=== PATIENT | female | born 1990 | race Caucasian/White ===

== ENCOUNTER 2017-11-10 09:07 | Inpatient (IN) ==
--- NOTE | 2017-11-10 09:27 | OB/GYN History & Physical ---
Date of Encounter: 11/10/17 Time of Encounter: 08:00 Assessment and Plan (1) Post term over 40 weeks Current visit: Yes Status: Acute (2) Elective induction of labor planned Current visit: Yes Status: Acute History of Present Illness Chief complaint: 40 week induction HPI: Ms. Rehman is a 26 year old female 1 who presents for induction of labor at 40 weeks and 3 days. She has a due date of November 07. She is doing well. She is having no complaints of any kind today. She denies any complaints. She is cathryn irregularly. Cervical exam on presentation is 1 cm, 50% effaced and -2 station with infant in vertex presentation. She has allergies to penicillin and latex. She is currently on vitamins. Surgical history is negative. Current medical conditions include asthma. She has no history of abnormal Pap smears, STDs or pelvic infections. She has no history of abnormal breast findings. Socially she denies tobacco or illicit drug use. Family history significant for heart disease, hypertension and diabetes. She is currently in the and works as a glass fitter. Obstetrical History - Pregnancies : 1 Exam - Constitutional Constitutional: well developed, well nourished, no acute distress, average body habitus - HEENT HEENT: PERRL - Neck Neck exam: full ROM - Lungs Respiratory exam: CTAB - Cardiovascular Cardiovascular exam: RRR - Abdomen Abdomen: Present: gravid, non tender - Extremities Extremities exam: full ROM - Vagina Vagina: Present: normal moisture - Cervix Dilation: 1 Effacement: 60 Station: -2 - Uterus Uterus exam: Present: normal size Results All other labs normal.
[2017-11-10] MEDS ORDERED: Famotidine 20 MG/2 ML VIAL IVP PRN (10:43)
[2017-11-10] MEDS ORDERED: *HR* Nalbuphine 10 MG/ML AMPUL IVP PRN (10:43)
[2017-11-10] MEDS ORDERED: Metoclopramide 10 MG/2 ML VIAL IVP PRN (10:43)
[2017-11-10] MEDS ORDERED: miSOPROStol 100 MCG TABLET PO STA (10:59)
--- NOTE | 2017-11-10 11:02 | OB Labor Progress Note ---
Date of Encounter: 11/10/17 Time of Encounter: 10:59 Labor Progress Note - Subjective Subjective: Patient here for scheduled IOL. We discussed POC and ruiz induction. Patient denies any questions or concerns. - Cervix Cervix: 1/70/-2 - Heart Tones Heart Tones: 125 bpm moderate variability +15x15 accels no decels Cat 1 tracing. - [place]: Contraction are irregular - Interventions Interventions: SVE, Ruiz catheter placed for IOL without difficulty. Patient tolerated well. 60cc sterile water placed in ruiz balloon per Dr. Yuen's request. - Plan Plan: Cytotec 50mcg PO Continue labor management
--- NOTE | 2017-11-10 11:14 | Anesthesia Evaluation PreOp ---
Date of Encounter: 11/10/17 Time of Encounter: 11:13 - Past History Planned Operation: caroline Cardiac History: Denies any Significant Hx Pulmonary History: Former smoker, Asthma LADIES ATTENDANT History: Denies Any Significant HX Other Medical History: Denies Any Significant HX Anesthesia History: No Prior Anesthetic Complications, Past Anesthesia (no prior anesthetics, but no family history of anesthetics) : Yes ( 40 plus) Test: Positive Alcohol Use: none Drug use: none Medications and Allergies Vit/Iron Fumarate/FA [ Tablet] 1 each PO 11/10/17 [History] 3 Allergy/AdvReac Type Severity Reaction Status Date / Time penicillamine Allergy Rash Verified 11/10/17 10:03 latex AdvReac Rash Verified 11/10/17 10:03 - Meds/Allergy Pre-op Review Medications Reviewed: Yes Allergies Reviewed: Yes Anesthesia Exam O2 Sat Height 1.6 m Height 1.6 m Weight 97.976 kg Weight 97.976 kg Height: 63 Weight: 97 - HEENT Pupil (Motor): Pupils equal Mallampati: II Teeth: Normal Oral Opening: Greater than 3 - LADIES ATTENDANT LOC: Oriented LADIES ATTENDANT Motor: Normal RUE, Normal LUE, Normal RLE, Normal LLE, Normal Face LADIES ATTENDANT Sensory: Normal: RUE, LUE, RLE, LLE, Face - Cardiac Rhythm: Regular Murmur: None JVD: No Carotid Bruit: No - Pulmonary Breath Sounds: bilateral Clear Respiratory Effort: Symmetrical Anesthesia Assess/Plan ASA Score: 2 Modified [place] Scale for Level of Consciousness: Cooperative, oriented, and tranquil Anesthetic Plan: Regional Monitoring Plan: Standard Monitors
[2017-11-10 11:44] LABS: Basophils % 0.3 %; Eosinophils % 0.4 %; Hematocrit 38.1 % (35.3-44.9); Hemoglobin 12.7 g/dL (11.5-15.4); Immature Granulocytes % 0.7 % (0-4); Lymphocytes # 1.8 K/mcL (0.6-4.6); Lymphocytes % 17.8 %; Mean Corpuscular HGB Conc 33.3 g/dL (31.6-35.5); Mean Corpuscular Hemoglobin 28.7 pg (28.0-33.3); Mean Platelet Volume 10.7 fL (9.4-12.4); Monocytes # 0.6 K/mcL (0.0-1.3); Monocytes % 6.3 %; Neutrophils # 7.6 K/mcL (1.6-8.9); Platelet Count 237 K/mcL (140-400); Red Blood Count 4.43 M/mcL (3.82-4.97); Red Cell Distribution Width 13.9 % (11.5-14.5); Segmented Neutrophils % 74.5 %
[2017-11-10 12:14] LABS: Amphetamine Screen,Urine Negative ng/mL (Cutoff=1000); Barbiturate Screen,Urine Negative ng/mL (Cutoff=200); Benzodiazepines Screen,Urine Negative ng/mL (Cutoff=200); Cannabinoid Screen,Urine Negative ng/mL (Cutoff = 50); Cocaine Screen,Urine Negative ng/mL (Cutoff= 300); Opiate Screen,Urine Negative ng/mL (Cutoff=300); Phencyclidine Screen,Urine Negative ng/mL (Cutoff=25)
--- NOTE | 2017-11-10 14:15 | OB/GYN Progress Note ---
Date of Encounter: 11/10/17 Time of Encounter: 14:13 - Assessment and Plan (1) Post term over 40 weeks Current Visit: Yes Status: Acute (2) Elective induction of labor planned Current Visit: Yes Status: Acute Subjective - Subjective Principal diagnosis: interval note labor Interval history: 26 yo female G1 at 40.3 weeks for induction of labor. ruiz induction started with misoprostol. Minimal change at 1400. Ruiz taped to leg. Will change to pitocin. category 1 tracing, irreg ctxs. Antepartum ROS: movement normal Objective - Vital Signs Vital Signs: Intake and Output 11/09/17 11/10/17 11/10/17 23:59 07:59 15:59 Other: Weight 97.976 kg Patient Weight 11/10/17 23:59 Weight 97.976 kg - Exam FHR: auscultation normal Abdomen: Present: normal appearance, gravid Uterus: Present: normal, firm Cervical dilation: 3cm Cervix effacement: 70% station: -3
--- NOTE | 2017-11-10 14:19 | History & Physical Report ---
Date of Encounter: 11/10/17 Time of Encounter: 14:17 24 Hour HP Update - Instructions Instructions: If the History and Physical is less than 30 days old and was completed prior to A.M. admission and or procedure and has NOT been updated on calendar day of procedure please complete this update prior to performing procedure. - Update Patient reports changes in Medical Condition: No Changes in examination, assessment, or condition: No Changes in Medication: No Preop tests/diagnostics Reviewed: Yes Consent for Planned Operative Procedure(s) Verified: Yes - Pre-Operative Checklist Is VTE Prophylaxis Indicated?: NO - Attending Attestation Pt seen in office last night at 16:30 in office.. H&P typed this am from last nights visit.
[2017-11-10] MEDS ORDERED: *HR* Ropivacaine/PF 0.2% 20 ML VIAL ONE (15:07)
[2017-11-10] MEDS ORDERED: Water for inj. (sterile) 10 ML IV ONE (15:07)
[2017-11-10] MEDS ORDERED: *HR* FentaNYL (PF) 100 MCG/2 ML VIAL ONE (15:07)
[2017-11-10] MEDS: Ringers Solution, Lactated 1,000 ML IVC SCH ×2 (15:09→23:53)
[2017-11-10] MEDS ORDERED: *HR* Ropivacaine/PF 0.2% 20 ML VIAL EP ONE (15:49)
[2017-11-10] MEDS ORDERED: *HR* FentaNYL (PF) 100 MCG/2 ML VIAL EP ONE (15:49)
[2017-11-10] MEDS ORDERED: EPHEDrine 50 MG/ML VIAL IVP PRN (15:49)
[2017-11-10] MEDS ORDERED: Epidural Premix (fent/bupiv) 110 ML EP SCH (16:00)
[2017-11-10] MEDS ORDERED: Oxytocin 20 units/ LR 1000 mL 20 UNIT/1,000 ML BAG IVC SCH (16:15)
--- NOTE | 2017-11-10 19:13 | OB Labor Progress Note ---
Date of Encounter: 11/10/17 Time of Encounter: 19:11 Labor Progress Note - Subjective Subjective: Patient doing well. Patient reports feeling contractions more than earlier. Blanco balloon was expelled with last check per RN. - Cervix Cervix: 6/90/-2 - Heart Tones Heart Tones: 125 bpm moderate variability +15x15 accels no decels noted. Cat. 1 tracing - [place]: 1-3 min apart - Interventions Interventions: SVE Dr. Yuen updated on patient's exam, Pitocin dosage and POC. No new orders given at this time. - Plan Plan: Continue labor management Epidural placement when desires anticipate
--- NOTE | 2017-11-10 20:10 | Anesthesia Procedures ---
Date of Encounter: 11/10/17 Time of Encounter: 20:06 Procedures: Anesthesia - Epidural/Spinal Patient ID/Chart reviewed: Yes Patient examined: Yes OB Eval: Gestational age: 40 OB Eval: : 1 OB Eval: Hx Para: 0 OB Eval: Dilated at (cm): 4 OB Eval: Contractions: Non-stressed pattern Consent Obtained: Yes Supplemental Oxygen: None/Room Air Site Prep: Aseptic Technique, 0.5% Chlorhexidine/Alcohol Patient position: upright Local Anesthetic: Lidocaine 1% Amount of Local Anesthetic used: 3 Touhy Needle Gauge: 18 Touhy Needle Depth (cm): 6 Catheter Depth at Skin (cm): 12 Test Dose (1.5% Lido + Epi): Volume given (mls): 3 Test Dose Result: Negative Loading Dose: Fentanyl (mcg): 100 Loading Dose: Other: 0.2% ropi 6cc Loading Dose Administered: Thru Touhy Needle Infusion Med: 0.125% Bupivacaine w/ 2 mcg/ml Fentanyl Infusion Rate (mls/hr): [address]: Tegaderm Interspace Used: L3-L4 Loss of Resistance (FADUMO): Yes Blood: No CSF: No Paresthesia: No Procedure: L3-4 aseptically after 4 passes. FADUMO acheived after redirected slightly left of midline. No parasthesia, no heme, no CSF
--- NOTE | 2017-11-10 20:23 | OB Labor Progress Note ---
Date of Encounter: 11/10/17 Time of Encounter: 20:12 Labor Progress Note - Subjective Subjective: Patient resting in bed post epidural placement. Discussed POC with patient. Patient denies any questions or concerns. - Cervix Cervix: 6/90/-1 - Heart Tones Heart Tones: 125 bpm moderate variability 15x15 accels no decels noted. Cat. 1 tracing - [place]: 1.5-2 - Interventions Interventions: SVE, AROM moderate amount clear fluid. IUPC placed without difficulty. Patient tolerated well. - Plan Plan: continue labor management anticipate
--- NOTE | 2017-11-11 07:16 | OB/GYN Progress Note ---
Date of Encounter: 11/11/17 Time of Encounter: 07:14 - Assessment and Plan (1) Post term over 40 weeks Current Visit: Yes Status: Acute (2) Elective induction of labor planned Current Visit: Yes Status: Acute (3) Arrest of dilation, delivered, current hospitalization Current Visit: Yes Status: Acute (4) Failure of descent in labor, delivered, current hospitalization Current Visit: Yes Status: Acute Subjective - Subjective Principal diagnosis: arrest of dilation, failure to descend Interval history: 26 yo female G1 at 40.4 weeks admitted for induction of labor. Pt with slow cervical change through day. Has now been at 7 cm for 8 hrs. Tracing category 1. I have discussed this with pt. They wish to proceed. Antepartum ROS: movement normal Objective - Vital Signs Vital Signs: Intake and Output 11/10/17 11/10/17 11/11/17 15:59 23:59 07:59 Intake Total 1000 / 1000 Output Total 1450 / 1450 Balance 1000 / 1000 -1450 / -1450 Intake: IV Fluids 1000 / 1000 Lactated Ringers 1,000 ML @ 125 1000 / 1000 mls/hr IVC .Q8H [facility] Rx#: [id number] Output: Catheter 1450 / 1450 Other: Weight 97.976 kg - Exam FHR: category 1 Auscultation: bilateral: normal Abdomen: Present: normal appearance, gravid Uterus: Present: normal Cervical dilation: 7 Cervix effacement: 90 station: -2
[2017-11-11] MEDS: Ringers Solution, Lactated 1,000 ML IVC SCH (07:24)
[2017-11-11] MEDS ORDERED: Azithromycin 1,000 MG in D5% in Water 250 ML IVPB ONE (07:27)
[2017-11-11] MEDS ORDERED: CeFAZolin Premix DUPLEX 2,000 MG/50 ML BAG IVPB ONE (07:30)
[2017-11-11] MEDS ORDERED: *HR* Promethazine 25 MG/ML VIAL IVP PRN (08:13)
[2017-11-11] MEDS ORDERED: Ondansetron 4 MG/2 ML VIAL IVP ONE (08:13)
[2017-11-11] MEDS ORDERED: Acetaminophen IV 1,000 MG/100 ML INFUS..BTL IVPB ONE (08:42)
[2017-11-11] MEDS ORDERED: Lidocaine -MPF 2% 5 ML VIAL ONE (08:51)
[2017-11-11] MEDS ORDERED: Bupivacaine-MPF 0.25% 10 ML VIAL ONE (08:51)
[2017-11-11] MEDS ORDERED: Ringers Solution, Lactated 1,000 ML ONE (08:51)
[2017-11-11] MEDS ORDERED: *HR* Phenylephrine 10 MG/ML VIAL ONE (08:51)
[2017-11-11] MEDS ORDERED: *HR* Oxytocin 10 UNIT/ML VIAL IM ONE ×2 (08:51)
[2017-11-11] MEDS ORDERED: *HR* FentaNYL (PF) 100 MCG/2 ML VIAL ONE (08:51)
--- NOTE | 2017-11-11 08:56 | OB/GYN Procedure Note ---
Section - Date of procedure: 11/11/17 Preop diagnosis: arrest of descent, arrest of dilation Post-op diagnosis: same Procedure: primary low transverse Surgeon: Javier Cabezas Blood Loss: 500 Was there an pediatric medical assistant present: Yes Property Disposal Manager: Russell Hidalgo Anesthesiologist: Russell Blankenship Band Sawmill Operator: Yuan Marquez Anesthesia Type: Epidural section complications: none Disposition: Post floor Specimens: Placenta - (s) Infant A Delivery Date: 11/11/17 Infant Delivery Time: : Presentation: vertex Position: OA Route of delivery: other Gender: Male Gram Weight: 3.74 kg at 1 minute: 9 at 5 minutes: 9 Shoulder Dystocia: not encountered - Narrative Narrative: Chacha is a 26-year-old female 1 at 40 weeks and 4 days. Patient was admitted for induction of labor. She progressed to approximately 7 cm. Patient did not wish to section. She was allowed to contract and attempt delivery. She had arrest of dilation and no descent of the . She remained at 7 cm for approximately 8 hours. Category 1 tracing was noted during this entire time. We had adequate contractions with internal pressure catheter. At this time I discussed a section with patient. She and her both agreed and she did wish to proceed. Procedure patient was taken to the operating room with IV in place after informed consent was obtained. She had already had an epidural in place this was bolused. She was then prepped and draped in the usual sterile fashion. A Pfannenstiel incision was then made and carried sharply through subcutaneous taste and fatty tissue to the fascial layers reached. The fascia was then nicked in the midline and incised bilaterally with Kinney scissors. It was then dissected vertically for adequate exposure. Rectus abdominis musculature was severed the midline. The peritoneum was sharply entered. Incision was bluntly extended. A bladder blade was placed at the inferior margin of the incision. The bladder flap was then developed. The bladder blade was placed over the bladder flap low transverse incision was then made in the lower uterine segment. Fluid was noted be clear. The infant was found to be in occipitoanterior presentation lodged in the pelvis. The 's head was then delivered there was a cord around neck 1 which was easily reduced. The rest of the was then delivered. The cried immediately upon delivery. The cord was clamped cut after 60 seconds. The patient or the infant was in past nurse in attendance. Cord blood was obtained. The placenta was then delivered. Uterine massage. The placenta was then delivered in its entirety. The uterus was then delivered and uterine lavage was performed. The uterine incision was then closed the Vicryl suture in a running locking fashion. One [id number] was placed for final hemostasis. The uterus was replaced the pelvic cavity pelvic cavity was then rinsed thoroughly with sterile water 2. C no bleeding the procedure was terminated. Sponge needle Seale counts correct 2. The fascia was then examined. It was then closed with 0 Vicryl suture in a running nonlocking fashion. Suprafascial region service early sterile water 2 all bleeders cauterized the skin was closed mark. Patient tolerated procedure. As her blood loss 500 mL patient delivered a male weighing 8 lbs. 4 oz. with 9, 9 Apgars.
--- NOTE | 2017-11-11 09:56 | Anesthesia Evaluation Post Op ---
Date of Encounter: 11/11/17 Time of Encounter: 09:55 - Vital Signs Vital Signs: 103/68, HR 98, SpO2 98%, RR 16 - Lungs Lungs: Clear Ascult./Percussion - Airway Airway: Non-obstructed - Cardiovascular Regular Rate - Mental Status Mental Status: Alert & Oriented, Answers Appropriately - Pain Pain Scale: 0 Pain Scale used: Numeric (1 - 10) - Nausea Vomiting Nausea Vomiting: Not Present - Hydration Hydration: NPO, Blanco catheter - Discharge PostOp Status: Transfer Patient to floor
[2017-11-11] MEDS ORDERED: *HR* OxyCODONE/APAP 5/325 TABLET PO PRN (10:38)
[2017-11-11] MEDS ORDERED: Rho Immune Globulin 1,500 UNIT SYRINGE IM ONE (10:38)
[2017-11-11] MEDS ORDERED: Sennosides 8.6 MG TABLET PO PRN (10:38)
[2017-11-11] MEDS ORDERED: Naloxone 0.4 MG/ML INJ IVP PRN (10:38)
[2017-11-11] MEDS ORDERED: Metoclopramide 10 MG/2 ML VIAL IVP PRN (10:38)
[2017-11-11] MEDS ORDERED: *HR* HYDROmorphone (PF) 1 MG/ML SYRINGE IVP PRN (10:38)
[2017-11-11] MEDS ORDERED: Ondansetron 4 MG/2 ML VIAL IVP PRN (10:38)
[2017-11-11] MEDS ORDERED: Rho Immune Globulin 1,500 UNIT SYRINGE IM PRN (11:08)
[2017-11-11] MEDS ORDERED: ceFAZolin 2,000 MG in 0.9 % Sodium Chloride 100 ML IVPB SCH (16:00)
[2017-11-11] MEDS ORDERED: ceFAZolin 2,000 MG in D5% in Water 100 ML IVPB SCH (16:00)
[2017-11-11] MEDS: Ibuprofen 600 MG TABLET PO PRN (17:46)
[2017-11-11] MEDS: Oxytocin 20 units/ LR 1000 mL 20 UNIT/1,000 ML BAG IVC SCH (17:47)
[2017-11-12] MEDS: Ibuprofen 600 MG TABLET PO PRN ×3 (03:59→18:25)
[2017-11-12 06:44] LABS: Basophils % 0.2 %; Eosinophils # 0.1 K/mcL (0.0-0.6); Eosinophils % 0.3 %; Hematocrit 28.3 % (35.3-44.9); Hemoglobin 9.2 g/dL (11.5-15.4); Immature Granulocytes % 0.6 % (0-4); Immature Platelets 3.8 % (1.1-6.1); Lymphocytes # 1.5 K/mcL (0.6-4.6); Mean Corpuscular HGB Conc 32.5 g/dL (31.6-35.5); Mean Platelet Volume 10.3 fL (9.4-12.4); Monocytes # 1.4 K/mcL (0.0-1.3); Monocytes % 7.4 %; Neutrophils # 15.7 K/mcL (1.6-8.9); Platelet Count 211 K/mcL (140-400); Red Blood Count 3.29 M/mcL (3.82-4.97); Red Cell Distribution Width 14.2 % (11.5-14.5); Segmented Neutrophils % 83.5 %
[2017-11-12] MEDS: Prenatal Vit/FA 1 EACH TABLET PO SCH ×2 (08:33→19:40)
--- NOTE | 2017-11-12 16:59 | OB/GYN Progress Note ---
Date of Encounter: 11/12/17 Time of Encounter: 11:00 - Assessment and Plan (1) Status post delivery Current Visit: Yes Status: Acute Pt meeting POD#1 milestones. Plan for discharge home POD#2-3. (2) anemia Current Visit: Yes Status: Acute (3) Mother currently breast-feeding Current Visit: Yes Status: Acute Subjective - Subjective Patient reports: appetite normal, voiding normally, pain well controlled, ambulating normally : doing well Objective - Vital Signs Latest vital signs: Vital Signs Temp Pulse Resp BP Pulse Ox 11/12/17 07:44 98.0 F 103 14 108/74 97 11/12/17 04:00 99.4 F 108 20 107/71 98 11/11/17 23:45 98.0 F 100 14 106/70 98 11/11/17 20:15 98.0 F 105 14 118/82 97 Intake and Output 11/12/17 11/12/17 11/12/17 07:59 15:59 23:59 Intake Total 700 / 700 750 / 750 Output Total 1550 / 1550 800 / 800 Balance -850 / -850 -50 / -50 Intake: Oral 700 / 700 750 / 750 Output: Urine 800 / 800 Catheter 1550 / 1550 Other: Meal Breakfast Percent of Meal Consumed 50% Weight 92.125 kg Patient Weight 11/12/17 23:59 Weight 92.125 kg - Exam Lungs: bilateral: normal Chest: Normal S1, Normal S2 Extremities: Present: normal, edema (mild bilaterally) Abdomen: Present: soft Incision: Present: dry, intact, dressed Uterus: Present: firm - Labs Labs: Laboratory Results - last 24 hr 11/12/17 06:14 WBC 18.8 H D RBC 3.29 L Hgb 9.2 L D Hct 28.3 L MCV 86.0 MCH 28.0 MCHC 32.5 RDW 14.2 Plt Count 211 MPV 10.3 Immature Gran % 0.6 Seg Neutrophils % 83.5 Lymphocytes % 8.0 Monocytes % 7.4 Eosinophils % 0.3 Basophils % 0.2 Neutrophils # 15.7 H Lymphocytes # 1.5 Monocytes # 1.4 H Eosinophils # 0.1 Basophils # 0.0 Immature Plt Fraction 3.8
[2017-11-12] MEDS ORDERED: *HR* HYDROcodone/Acet 5/325 mg TABLET PO PRN (18:29)
[2017-11-12] MEDS: Oxytocin 20 units/ LR 1000 mL 20 UNIT/1,000 ML BAG IVC SCH (19:44)
[2017-11-13] MEDS: Ibuprofen 600 MG TABLET PO PRN ×2 (00:27→06:42)
[2017-11-13] MEDS: Simethicone 80 MG TAB.CHEW PO PRN ×2 (00:29→07:46)
[2017-11-13] MEDS: Prenatal Vit/FA 1 EACH TABLET PO SCH (07:46)
[2017-11-13 08:13] VITALS: BP 113/76
--- NOTE | 2017-11-13 08:53 | Discharge Summary ---
Date of Encounter: 11/13/17 Time of Encounter: 08:51 - Discharge Diagnosis (1) Mother currently breast-feeding Priority: Secondary Status: Acute Comments: support prn (2) anemia Priority: Secondary Status: Acute Comments: continue ferrous sulfate daily (3) Status post delivery Priority: Primary Status: Acute Comments: Continue routine postop/ care discharge home today follow up in 1 week for staple removal Start Keflex daily for prophylaxis per Dr. Yuen's request - Discharge Medications Prescriptions: Ibuprofen [Motrin] 600 mg PO Q6HR PRN #60 tablet PRN Reason: Cramping cephALEXin [Keflex] 500 mg PO BID 5 Days #10 capsule Docusate [Colace] 100 mg PO BID #60 capsule HYDROcodone/Acet 5/325 mg [[place] 5-325 mg] 1 tab PO Q4H PRN 5 Days #30 tablet PRN Reason: Moderate Pain Home Medications: Docusate [Colace] 100 mg PO BID #60 capsule 11/13/17 [Rx] Ferrous Sulfate 325 mg PO DAILY tablet 11/13/17 [Rx] HYDROcodone/Acet 5/325 mg [[place] 5-325 mg] 1 tab PO Q4H PRN 5 Days #30 tablet [Rx] Ibuprofen [Motrin] 600 mg PO Q6HR PRN #60 tablet 11/13/17 [Rx] Vit/FA 1 each PO DAILY tablet 11/13/17 [Rx] cephALEXin [Keflex] 500 mg PO BID 5 Days #10 capsule 11/13/17 [Rx] Allergies/Adverse Reactions: 3 Allergy/AdvReac Type Severity Reaction Status Date / Time penicillamine Allergy Rash Verified 11/10/17 10:03 latex AdvReac Rash Verified 11/10/17 10:03 Data Procedures and tests throughout hospitalization: Laboratory Tests 11/10/17 11/10/17 11/10/17 11:05 11:05 11:05 WBC 10.2 RBC 4.43 Hgb 12.7 Hct 38.1 MCV 86.0 MCH 28.7 MCHC 33.3 RDW 13.9 Plt Count 237 MPV 10.7 Immature Gran % 0.7 Seg Neutrophils % 74.5 Lymphocytes % 17.8 Monocytes % 6.3 Eosinophils % 0.4 Basophils % 0.3 Neutrophils # 7.6 Lymphocytes # 1.8 Monocytes # 0.6 Eosinophils # 0.0 Basophils # 0.0 Immature Plt Fraction Urine Opiates Screen Negative Ur Barbiturates Screen Negative Ur Phencyclidine Scrn Negative Ur Amphetamines Screen Negative U Benzodiazepines Scrn Negative Urine Cocaine Screen Negative U Marijuana (THC) Screen Negative Ur Drug Screen Interp See Below Blood Type O NEGATIVE Screen Baby's Blood Type Mother's Blood Type Rhogam Indicated Rhogam Req for Mother 11/11/17 11/12/17 08:52 06:14 WBC 18.8 H D RBC 3.29 L Hgb 9.2 L D Hct 28.3 L MCV 86.0 MCH 28.0 MCHC 32.5 RDW 14.2 Plt Count 211 MPV 10.3 Immature Gran % 0.6 Seg Neutrophils % 83.5 Lymphocytes % 8.0 Monocytes % 7.4 Eosinophils % 0.3 Basophils % 0.2 Neutrophils # 15.7 H Lymphocytes # 1.5 Monocytes # 1.4 H Eosinophils # 0.1 Basophils # 0.0 Immature Plt Fraction 3.8 Urine Opiates Screen Ur Barbiturates Screen Ur Phencyclidine Scrn Ur Amphetamines Screen U Benzodiazepines Scrn Urine Cocaine Screen U Marijuana (THC) Screen Ur Drug Screen Interp Blood Type Screen NEGATIVE Baby's Blood Type A RH POSITIVE Mother's Blood Type O RH NEGATIVE Rhogam Indicated YES Rhogam Req for Mother 1 Date of admission: 11/10/17 09:07 Primary care physician: Sho Piña CNP Discharging clinician: Millie Duff Anticipated date of discharge: 11/13/17 - Patient Status Disposition: Home, Self-Care Condition: Good Functional capacity at discharge: independent ambulation - Discharge Instructions Follow Up With: Sho Piña CNP [Primary Care Provider] - Javier Yuen MD [Partnered Physician] - - Diet and Activity Activity: increase activity as tolerated Diet: regular diet Hospital Course Procedures: [facility] report reviewed by ANNEL Major Reason for admission: induction of labor Delivery: section Episiotomy: none Laceration: none Other procedures: none complications: none Discharge diagnosis: IUP at term delivered baby: male (breast feeding) Time Attestation: Total time spent providing and/or coordinating discharge services: Time Spent: Less than 30 minutes - VTE Reasons for not Prescribing Prophylaxis: Treatment not Indicated - Low risk for VTE Documentation of Mechanical Device: Intermittent pneumatic compression device Exam - Constitutional Vitals: Temp Pulse Resp BP Pulse Ox 97.9 F 96 16 113/76 98 11/13/17 08:10 11/13/17 08:10 11/13/17 08:10 11/13/17 08:10 11/12/17 19:45 General appearance IM: A&O X 3, pleasant, answers questions appropriately - Respiratory Respiratory exam: Present: CTAB - Cardiovascular Cardiovascular exam IM: Present: RRR, +S1, +S2 - GI/Abdominal GI/Abdominal exam IM: normal bowel sounds - Uterine Tone: Firm Uterus Position: 2 Fingers Below Umbilicus, Midline - Extremities Exam Extremities exam IM: Present: full ROM, normal capillary refill, normal inspection - Neurological Exam Neurological exam: alert, oriented X3, reflexes normal
== END 2017-11-13 10:39 | disposition home or self-care (01) | DRG 766 ==
LOC: 1NENULAB 09:07 → 1NENUOBS 11-11 10:37
PROVIDERS: ADMIT Obstetrics & Gynecology; ATTEND Obstetrics & Gynecology